=== PATIENT | female | born 1955 | race Caucasian/White ===

== ENCOUNTER → 2020-10-08 | Outpatient (CLI) | payer OTHER, MEDICARE ==
--- NOTE | 2020-10-08 16:47 | RAD ---
Examination: Left Lower Extremity Venous Doppler Ultrasound History: Left lower extremity swelling Comparison: None Procedure: Kay scale, color flow 2D and spectal waveform analysis images are obtained with and witho ut compression in the area of the common femoral vein, superficial femoral vein - femoral vein juncti on, main femoral vein (superficial femoral vein) and popliteal vein. Veins of the proximal calf are a lso imaged. Findings: There is normal duplex flow, color flow and compressibility of all visualized vein segments. No evide nce of deep venous thrombus is present. Few enlarged left inguinal groin lymph node. Impression: No evidence of DVT in the left lower extremity venous system. Electronically signed by: Bharath Bo MD (10/08/2020 4:45 PM) [id number]
== END ==
LOC: US 15:50
PROVIDERS: ATTEND Family Medicine
DX: I82.402 Acute embolism and thrombosis of unspecified deep veins of left lower extremity (principal)
CPT/HCPCS: 93971